=== PATIENT | male | born 1945 | race Caucasian/White ===

== ENCOUNTER → 2023-10-02 | Emergency (ER) | payer OTHER ==
--- NOTE | 2023-10-02 16:09 | RAD REPORT ---
EXAM DESCRIPTION: RAD - Foot Right 3 View - 10/02/2023 2:43 pm CLINICAL HISTORY: PAIN COMPARISON: No comparisons TECHNIQUE: Right foot, 3 views. FINDINGS: No fracture, dislocation or periosteal reaction. Moderate calcaneal spur Soft tissue swelling about the ankle most pronounced anteriorly. No air or foreign body in the soft t issues. IMPRESSION: No acute osseous abnormality. Soft tissue swelling about the ankle.
--- NOTE | 2023-10-02 16:16 | EDPHYS ---
Physician Documentation [facility] Name: Jesse Saunders Age: 77 yrs Sex: Male : 1945 Arrival Date: 10/02/2023 Time: 13:44 Bed 9 Private MD: ED Physician Fede Morales HPI: 10/02 15:56 This 77 yrs old Male presents to ER via Ambulatory with complaints of Foot Injury - ms3 right. 15:56 77-year-old male with no past medical history presents to the emergency department for ms3 right lateral foot pain after getting down from a ladder 2 and half hours prior to arrival. Patient states he felt a snap/pop in his foot. Patient rates his pain a 5/10. Patient denies alleviating factors.. Historical: - Allergies: 13:55 No Known Allergies; ko1 - Home Meds: 13:55 None [Active]; ko1 - PMHx: 13:55 None; ko1 - PSHx: 13:55 None; ko1 - Immunization history:: Adult Immunizations up to date. - Social history:: Smoking status: Patient denies any tobacco usage or history of. ROS: 15:56 Constitutional: Negative for fever, and chills. Neck: Negative for injury, pain, and ms3 swelling, Cardiovascular: Negative for chest pain, and palpitations. Respiratory: Negative for shortness of breath, cough, wheezing, and pleuritic chest pain, Abdomen/GI: Negative for abdominal pain, nausea, vomiting, diarrhea, and constipation, 15:56 MS/extremity: Positive for pain, tenderness, of the right foot, 15:56 All other systems are negative, Exam: 15:56 Constitutional: This is a well developed, well nourished patient who is awake, alert, ms3 and in no acute distress. Head/Face: Normocephalic, atraumatic. Chest/axilla: Normal chest wall appearance and motion. Nontender with no deformity. Cardiovascular: Regular rate and rhythm with a normal S1 and S2. No gallops, murmurs, or rubs. Normal PMI, no JVD. No pulse deficits. Respiratory: Lungs have equal breath sounds bilaterally, clear to auscultation and percussion. No rales, rhonchi or wheezes noted. No increased work of breathing, no retractions or nasal flaring. Abdomen/GI: Soft, non-tender, with normal bowel sounds. No distension or tympany. No guarding or rebound. No evidence of tenderness throughout. Skin: Warm, dry with normal turgor. Normal color with no rashes, no lesions, and no evidence of cellulitis. 15:56 Musculoskeletal/extremity: Extremities: noted in the right foot: pain, tenderness, Vital Signs: 13:52 BP 136 / 76; Pulse 84; Resp 16; Temp 98.7; Pulse Ox 97% ; ko1 MDM: 13:57 Patient medically screened. ms3 15:56 Differential diagnosis: fracture, sprain, arthritis. ms3 16:10 Independent interpretation of the following test(s) in the Emergency Department X-Ray: ms3 My interpretation is Right foot x-ray image reviewed by me does not reveal fracture. Counseling: I had a detailed discussion with the patient and/or guardian regarding the historical points, exam findings, and any diagnostic results supporting the discharge/admit diagnosis, radiology results, the need for outpatient follow up, to return to the emergency department if symptoms worsen or persist or if there are any questions or concerns that arise at home. Special discussion: I discussed with the patient/guardian in detail that at this point there is no indication for admission to the hospital. It is understood, however, that if the symptoms persist or worsen the patient needs to return immediately for re-evaluation. ED course: Discussed x-ray results with patient. Patient to follow-up with Dr. Staley in 2 to 3 days. Patient understands and agrees with plan. Questions were answered. Return precautions discussed include worsening symptoms, or any other concerns. 16:18 Data reviewed: vital signs, nurses notes, and as a result, I will discharge patient. ms3 10/02 13:58 Order name: Foot Right 3 View XRAY; Complete Time: 16:10 ms3 Administered Medications: No medications were administered Disposition Summary: 10/02/23 16:15 Discharge Ordered Notes: Location: Home ms3 Condition: Stable ms3 Diagnosis - Pain in right foot ms3 Followup: ms3 - With: Jun Staley DPM - When: 2 - 3 days - Reason: Recheck today's complaints Discharge Instructions: - Discharge Summary Sheet ms3 - Musculoskeletal Pain ms3 Forms: - Medication Reconciliation Form ms3 - Thank You Letter ms3 - Antibiotic Education ms3 - Prescription Opioid Use ms3 - Patient Portal Instructions ms3 - Leadership Thank You Letter ms3 Signatures: Dispatcher [employer] Fede Trujillo DO DO ms3 Rosmaaria Levi, RN RN ko1
--- NOTE | 2023-10-02 16:16 | ER ---
Nurse's Notes [facility] Name: Jesse Saunders Age: 77 yrs Sex: Male : 1945 Arrival Date: 10/02/2023 Time: 13:44 Bed 9 Private MD: Diagnosis: Pain in right foot Presentation: 10/02 13:52 Chief complaint: Patient states: stepped off ladder and felt something snap in right ko1 foot, its getting more painful. Happened about 2 hours ago. Coronavirus screen: At this time, the client does not indicate any symptoms associated with coronavirus-19. Ebola Screen: No symptoms or risks identified at this time. Initial Sepsis Screen: Does the patient meet any 2 criteria? No. Patient's initial sepsis screen is negative. Does the patient have a suspected source of infection? No. Patient's initial sepsis screen is negative. Risk Assessment: Do you want to hurt yourself or someone else? Patient reports no desire to harm self or others. Onset of symptoms was October 02, 2023. 13:52 Method Of Arrival: Ambulatory ko1 13:52 Acuity: IZABELLA 4 ko1 Triage Assessment: 13:55 General: Appears in no apparent distress. uncomfortable, Behavior is calm, cooperative, ko1 appropriate for age. Pain: Complains of pain in right foot. Musculoskeletal: Reports pain in right foot. 16:29 Injury Description: unknown. ap3 Historical: - Allergies: 13:55 No Known Allergies; ko1 - Home Meds: 13:55 None [Active]; ko1 - PMHx: 13:55 None; ko1 - PSHx: 13:55 None; ko1 - Immunization history:: Adult Immunizations up to date. - Social history:: Smoking status: Patient denies any tobacco usage or history of. Screenin:28 [facility] ED Fall Risk Assessment (Adult) History of falling in the last 3 months, ap3 including since admission No falls in past 3 months (0 pts). Abuse screen: Denies threats or abuse. Nutritional screening: No deficits noted. Tuberculosis screening: No symptoms or risk factors identified. Vital Signs: 13:52 BP 136 / 76; Pulse 84; Resp 16; Temp 98.7; Pulse Ox 97% ; ko1 ED Course: 13:49 Patient arrived in ED. im 13:49 Fede Morales DO is Attending Physician. ms3 13:55 Triage completed. ko1 14:45 Foot Right 3 View XRAY In Process Unspecified. EDMS 16:15 Jun Staley DPM is Referral Physician. ms3 16:28 Arm band placed on right wrist. ap3 16:28 Provided Education on: discharge instructions. ap3 16:28 No provider procedures requiring assistance completed. Patient did not have IV access ap3 during this emergency room visit. 16:29 Patient has correct armband on for positive identification. ap3 Administered Medications: No medications were administered Medication: 16:29 VIS not applicable for this client. ap3 Outcome: 16:15 Discharge ordered by MD. ms3 16:28 Discharged to home ambulatory, ap3 16:28 Condition: good 16:28 Discharge instructions given to patient, Instructed on discharge instructions, follow up and referral plans. Demonstrated understanding of instructions, follow-up care, 16:29 Patient left the ED. ap3 Signatures: Dispatcher [employer] EDMS Diana Estrada, RN RN ap3 Fede Morales DO DO ms3 Rosamaria Levi, RN RN ko1 Stacia Hale
[2023-10-03 23:43] VITALS: BP 136/76; TEMP 98.7; O2SAT 97
== END ==
LOC: ER 13:44
DX: M79.671 Pain in right foot (principal)